=== PATIENT | male | born 1945 | race Caucasian/White ===

== ENCOUNTER 2017-08-11 14:37 | Emergency (ER) | payer MEDICARE, OTHER ==
--- NOTE | 2017-08-11 15:06 | EDM.PDOC ---
ED HPI GENERAL MEDICAL PROBLEM - General Chief Complaint: Cardiovascular Problem Stated Complaint: HIGH BP Time Seen by Provider: 08/11/17 15:01 Source of Information: Reports: Patient History Limitations: Reports: No Limitations - History of Present Illness INITIAL COMMENTS - FREE TEXT/NARRATIVE: c/o ingestion f.b. 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 and he is not planning on screening his stool - Related Data Allergies Allergy/AdvReac Type Severity Reaction Status Date / Time No Known Allergies Allergy Verified 12/04/14 07:53 Home Meds: Home Meds Finasteride 5 mg PO DAILY 10/07/13 [History] Lisinopril [Prinivil] 20 mg PO DAILY 10/07/13 [History] Meloxicam 15 mg PO DAILY 10/07/13 [History] Pioglitazone HCl/Metformin HCl [Actoplus Met 15 MG-850 MG] 1 tab PO BIDM [History] atorvaSTATin [Lipitor] 20 mg PO DAILY 10/07/13 [History] glipiZIDE [Glipizide] 10 mg PO DAILY 10/07/13 [History] metFORMIN [Glucophage] 850 mg PO JULIANNE 10/07/13 [History] Aspirin 325 mg PO DAILY 10/10/13 [History] Fluticasone Propionate 2 spray NS DAILY 12/01/14 [History] Social & Family History - Tobacco Use Smoking Status *Q: Never Smoker - Alcohol Use Days Per Week of Alcohol Use: 0 - Recreational Drug Use Recreational Drug Use: No ED ROS GENERAL - Review of Systems Review Of Systems: See Below Constitutional: Reports: No Symptoms HEENT: Reports: Other (dysphagia) Respiratory: Reports: No Symptoms Cardiovascular: Reports: No Symptoms Endocrine: Reports: No Symptoms GI/Abdominal: Reports: No Symptoms : Reports: No Symptoms Musculoskeletal: Reports: No Symptoms Skin: Reports: No Symptoms Neurological: Reports: No Symptoms Psychiatric: Reports: No Symptoms Hematologic/Lymphatic: Reports: No Symptoms Immunologic: Reports: No Symptoms ED EXAM, GENERAL - Physical Exam Exam: See Below Exam Limited By: No Limitations General Appearance: Alert, WD/WN, No Apparent Distress Nose: Normal Inspection, Normal Mucosa, No Blood Throat/Mouth: Normal Inspection, Normal Lips, Normal Teeth, Normal Gums, Normal Oropharynx, Normal Voice, No Airway Compromise, Other (no red, no swell) Head: Atraumatic, Normocephalic Neck: Normal Inspection, Supple, Non-Tender, Full Range of Motion, Other (neck NT) Respiratory/Chest: No Respiratory Distress, Lungs Clear, Normal Breath Sounds, No Accessory Muscle Use, Chest Non-Tender Cardiovascular: Normal Peripheral Pulses, Regular Rate, Rhythm, No Edema, No Gallop, No JVD, No Murmur, No Rub GI/Abdominal: Soft, Non-Tender, No Distention Psychiatric: Normal Affect, Normal Mood Skin Exam: Warm, Dry, Intact, Normal Color, No Rash Lymphatic: No Adenopathy Departure - Departure Time of Disposition: 15:04 Disposition: Home, Self-Care 01 Condition: Good Clinical Impression: Swallowed foreign body Instructions: Swallowed Foreign Body, Adult Referrals: Gatito Martins MD [Primary Care Provider] - Additional Instructions: May use liquid antacid 15 cc every 2-4 hours as needed for discomfort. May screen your stool for the next 2-3 days if desired to retrieve the partial. Continue regular diet. See your physician or return to ED if you should develop additional symptoms.
--- NOTE | 2017-08-11 16:42 | EDM.PDOC ---
ED HPI GENERAL MEDICAL PROBLEM - General Chief Complaint: Cardiovascular Problem Stated Complaint: HIGH BP Time Seen by Provider: 08/11/17 15:01 Source of Information: Reports: Patient History Limitations: Reports: No Limitations - History of Present Illness INITIAL COMMENTS - FREE TEXT/NARRATIVE: c/o inc'd BP BP 184/88, had seen PCP at [facility]gent [facility] in [place] on 07-20-17 and had cardiac echo done, his SBP was 144, has had gradual increase has been on lisinopril 20 mg daily for several yrs, dx with HTN 5y ago never had an MD, never dx with HF, told his EF was 69% on 07-20-17 no cp, no sob, has had ankle swelling told to take furosemide and KCl daily for 1 wk, then prn, which he did, did resume taking 2d ago, weight had gone from 344 to 335, now back up to 344 - Related Data Allergies Allergy/AdvReac Type Severity Reaction Status Date / Time No Known Allergies Allergy Verified 08/11/17 15:03 Home Meds: Home Meds Finasteride 5 mg PO DAILY 10/07/13 [History] Lisinopril [Prinivil] 20 mg PO DAILY 10/07/13 [History] Meloxicam 15 mg PO DAILY 10/07/13 [History] Pioglitazone HCl/Metformin HCl [Actoplus Met 15 MG-850 MG] 1 tab PO BIDM [History] atorvaSTATin [Lipitor] 20 mg PO DAILY 10/07/13 [History] metFORMIN [Glucophage] 850 mg PO DAILY 10/07/13 [History] Aspirin 325 mg PO DAILY 10/10/13 [History] Fluticasone Propionate 2 spray NS DAILY 12/01/14 [History] Furosemide 40 mg PO DAILY #30 tablet 08/11/17 [Rx] Furosemide [Furosemide] 20 mg PO ASDIRECTED 08/11/17 [History] Omeprazole [priLOSEC OTC] 20 mg PO DAILY 08/11/17 [History] Potassium Chloride 10 meq PO ASDIRECTED 08/11/17 [History] Potassium Chloride 40 meq PO DAILY #60 tablet.er 08/11/17 [Rx] Past Medical History Cardiovascular History: Reports: High Cholesterol, Hypertension Social & Family History - Tobacco Use Smoking Status *Q: Never Smoker - Caffeine Use Caffeine Use: Reports: Soda, Tea - Alcohol Use Days Per Week of Alcohol Use: 0 - Recreational Drug Use Recreational Drug Use: No ED ROS GENERAL - Review of Systems Review Of Systems: See Below Constitutional: Reports: No Symptoms HEENT: Reports: No Symptoms Respiratory: Reports: No Symptoms Cardiovascular: Reports: Other (inc'd ankle swelling) Endocrine: Reports: No Symptoms GI/Abdominal: Reports: No Symptoms : Reports: No Symptoms Musculoskeletal: Reports: No Symptoms Skin: Reports: No Symptoms Neurological: Reports: No Symptoms Psychiatric: Reports: No Symptoms Hematologic/Lymphatic: Reports: No Symptoms Immunologic: Reports: No Symptoms ED EXAM, GENERAL - Physical Exam Exam: See Below Free Text/Narrative:: c/o ingestion f.b. 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 and he is not planning on screening his stool Exam Limited By: No Limitations General Appearance: Alert, WD/WN, No Apparent Distress Nose: Normal Inspection, Normal Mucosa, No Blood Throat/Mouth: Normal Inspection, Normal Lips, Normal Teeth, Normal Gums, Normal Oropharynx, Normal Voice, No Airway Compromise, Other (no red, no swell) Head: Atraumatic, Normocephalic Neck: Normal Inspection, Supple, Non-Tender, Full Range of Motion, Other (neck NT) Respiratory/Chest: No Respiratory Distress, Lungs Clear, Normal Breath Sounds, No Accessory Muscle Use, Chest Non-Tender Cardiovascular: Regular Rate, Rhythm, No Gallop, No JVD, No Murmur, No Rub, Other (4+ pitting pretib edema b/l, trace edema above knees b/l) GI/Abdominal: Soft, Non-Tender, No Distention Back Exam: Normal Inspection, Full Range of Motion, NT Extremities: Other (edema as above) Neurological: Alert, Oriented, CN II-XII Intact, Normal Cognition, No Motor/ Sensory Deficits Psychiatric: Normal Affect, Normal Mood Skin Exam: Warm, Dry, Intact, Normal Color, No Rash Lymphatic: No Adenopathy Course - Vital Signs Last Recorded V/S: Last Vital Signs Temp 37.1 C 08/11/17 15:04 Pulse 74 08/11/17 15:04 Resp 20 08/11/17 15:04 BP 186/76 H 08/11/17 15:04 Pulse Ox 99 08/11/17 15:04 - Orders/Labs/Meds Orders: Active Orders 24 hr Category Date Time Status EKG 12 Lead [EK] Routine Ther 08/11/17 15:32 Ordered Labs: Laboratory Tests 08/11/17 08/11/17 Range/Units 15:50 15:50 Sodium 143 (135-145) mmol/L Potassium 3.9 (3.5-5.3) mmol/L Chloride 104 (100-110) mmol/L Carbon Dioxide 29 (21-32) mmol/L BUN 25 H (7-18) mg/dL Creatinine 1.1 (0.70-1.30) mg/dL Est Cr Clr Drug Dosing 58.92 mL/min Estimated GFR (MDRD) > 60 (>60) BUN/Creatinine Ratio 22.7 H (9-20) Glucose 115 (80-116) mg/dL Calcium 9.0 (8.6-10.2) mg/dL NT-Pro-B Natriuret Pep 216 H (<=125) pg/mL - Re-Assessments/Exams Free Text/Narrative Re-Assessment/Exam: 08/11/17 16:54 pt with clinical evidence of diastolic HF with inc'd BNP in context of preserved (if not somewhat elevated) EF, prerenal with inc'd BUN d/w HF, dry weight uncertain tx of HF discussed at length, including need to have additional adjustments in his meds Departure - Departure Time of Disposition: 16:43 Disposition: Home, Self-Care 01 Condition: Good Clinical Impression: Elevated blood pressure reading, Hypertension, Diastolic heart failure, Prerenal azotemia Prescriptions: Furosemide 40 mg PO DAILY #30 tablet Potassium Chloride 40 meq PO DAILY #60 tablet.er Instructions: Hypertension, [id number], Heart Failure, Preventing Heart Failure, Managing Your Hypertension Referrals: Gatito Martins MD [Primary Care Provider] - Forms: ED Department Discharge Additional Instructions: Continue the lisinopril 20 mg 1 tab daily. 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 Increase the potassium to 10 meq 2 tabs daily. Record your weight and blood pressure daily. See your physician in one week. Notify your physician if you have blood pressure higher than 200/100. Return to Emergency Department if you have blood pressure higher than 240/140. Call your Physician or Return to Emergency Department if: * Your condition worsens in any way. * You develop fever greater than 100.4. * You have vomiting that does not stop with medications. * You have pain that is not controlled with medications. - My Orders Last 24 Hours: My Active Orders 08/11/17 15:32 EKG 12 Lead [EK] Routine - Assessment/Plan Last 24 Hours: My Active Orders 08/11/17 15:32 EKG 12 Lead [EK] Routine
== END 2017-08-11 17:10 | disposition home or self-care (01) ==
LOC: FB.ED 14:37
DX: I11.0 Hypertensive heart disease with heart failure (principal); I50.30 Unspecified diastolic (congestive) heart failure; R79.89 Other specified abnormal findings of blood chemistry; E78.00 Pure hypercholesterolemia, unspecified; Z79.82 Long term (current) use of aspirin; Z79.899 Other long term (current) drug therapy
CPT/HCPCS: 36415; 80048; 83880; 93005; 99283

== ENCOUNTER 2019-05-01 00:37 | Emergency (ER) | payer MEDICARE, OTHER ==
[2019-05-01] MEDS ORDERED: Aspirin 81 MG Tab.Chew PO ONE (00:51)
--- NOTE | 2019-05-01 01:19 | EDM.PDOC ---
ED HPI GENERAL MEDICAL PROBLEM - General Chief Complaint: Chest Pain Stated Complaint: CHEST PAIN Time Seen by Provider: 05/01/19 00:40 Source of Information: Reports: Patient History Limitations: Reports: No Limitations - History of Present Illness INITIAL COMMENTS - FREE TEXT/NARRATIVE: Patient present to the Ed because of chest pain over the sternal area. the pain occurred while patient was resting,sharp,3/10 and worse with breathing. He denies and N/V dyspnea or diaphoresis. He is afraid that he might have a blood clot in his lung. He is taking coumadin because of a recent rt knee injury. L anterior chest Pain Score (Numeric/FACES): 2 - Related Data Allergies Allergy/AdvReac Type Severity Reaction Status Date / Time ciprofloxacin [From Cipro] Allergy Redness Verified 05/01/19 00:49 Home Meds: Home Meds Finasteride 5 mg PO DAILY 10/07/13 [History] Lisinopril [Prinivil] 20 mg PO DAILY 10/07/13 [History] Meloxicam 15 mg PO DAILY 10/07/13 [History] Pioglitazone HCl/Metformin HCl [Actoplus Met 15 MG-850 MG] 1 tab PO BIDM [History] atorvaSTATin [Lipitor] 20 mg PO DAILY 10/07/13 [History] metFORMIN [Glucophage] 850 mg PO DAILY 10/07/13 [History] Aspirin 325 mg PO DAILY 10/10/13 [History] Fluticasone Propionate 2 spray NS DAILY 12/01/14 [History] Furosemide 20 mg PO ASDIRECTED 08/11/17 [History] Furosemide 40 mg PO DAILY #30 tablet 08/11/17 [Rx] Omeprazole [priLOSEC OTC] 20 mg PO DAILY 08/11/17 [History] Potassium Chloride 10 meq PO ASDIRECTED 08/11/17 [History] Potassium Chloride 20 meq PO DAILY #30 tablet.er 08/11/17 [Rx] Potassium Chloride 40 meq PO DAILY #60 tablet.er 08/11/17 [Rx] Past Medical History HEENT History: Reports: Sinusitis Cardiovascular History: Reports: High Cholesterol, Hypertension Gastrointestinal History: Reports: Bowel Obstruction Genitourinary History: Reports: Prostate Disorder Musculoskeletal History: Reports: Arthritis Endocrine/Metabolic History: Reports: Diabetes, Type II, Obesity/BMI 30+ Hematologic History: Reports: Anticoagulation Therapy Oncologic (Cancer) History: Reports: Basal Cell Carcinoma Other Oncologic History: skin CA - Infectious Disease History Infectious Disease History: Reports: Chicken Pox, Measles, Mumps, Shingles - Past Surgical History HEENT Surgical History: Reports: Cataract Surgery Other HEENT Surgeries/Procedures: bilat cataract GI Surgical History: Reports: Cholecystectomy, Colonoscopy Musculoskeletal Surgical History: Reports: Knee Replacement Other Musculoskeletal Surgeries/Procedures:: L knee surgery, Social & Family History - Family History Family Medical History: Noncontributory - Tobacco Use Smoking Status *Q: Former Smoker Years of Tobacco use: 1 Used Tobacco, but Quit: Yes Month/Year Tobacco Last Used: 1967 - Caffeine Use Caffeine Use: Reports: Tea - Recreational Drug Use Recreational Drug Use: No ED ROS GENERAL - Review of Systems Review Of Systems: See Below Constitutional: Reports: No Symptoms HEENT: Reports: No Symptoms Respiratory: Reports: No Symptoms Cardiovascular: Reports: No Symptoms Endocrine: Reports: No Symptoms GI/Abdominal: Reports: No Symptoms : Reports: No Symptoms Musculoskeletal: Reports: No Symptoms Skin: Reports: No Symptoms Neurological: Reports: No Symptoms Psychiatric: Reports: No Symptoms Hematologic/Lymphatic: Reports: No Symptoms ED EXAM, GENERAL - Physical Exam Exam: See Below Exam Limited By: No Limitations General Appearance: Alert, WD/WN, No Apparent Distress Ears: Normal External Exam, Normal Canal, Hearing Grossly Normal Nose: Normal Inspection, Normal Mucosa, No Blood Throat/Mouth: Normal Inspection, Normal Lips, Normal Teeth, Normal Gums, Normal Oropharynx, Normal Voice, No Airway Compromise Head: Atraumatic, Normocephalic Neck: Normal Inspection, Supple, Non-Tender, Full Range of Motion Respiratory/Chest: No Respiratory Distress, Lungs Clear, Normal Breath Sounds, No Accessory Muscle Use, Chest Non-Tender Cardiovascular: Normal Peripheral Pulses, Regular Rate, Rhythm, No Edema, No Gallop, No JVD, No Murmur, No Rub GI/Abdominal: Normal Bowel Sounds, Soft, Non-Tender, No Organomegaly, No Distention, No Abnormal Bruit, No Mass Back Exam: Normal Inspection Course - Vital Signs Text/Narrative:: labs/EKG reviewed with patient and with full understanding EKG-NSR with PVC's trop neg Last Recorded V/S: Last Vital Signs Temp 36.4 C 05/01/19 00:37 Pulse 100 12/08/19 00:37 Resp 20 05/01/19 00:37 BP 162/79 H 05/01/19 00:37 Pulse Ox 99 05/01/19 00:37 - Orders/Labs/Meds Orders: Active Orders 24 hr Category Date Time Status EKG Documentation Completion [RC] ASDIRECTED Care 05/01/19 00:52 Active BASIC METABOLIC PANEL,BMP [CHEM] Stat Lab 05/01/19 00:50 Received TROPONIN I [CHEM] Stat Lab 05/01/19 00:50 Received EKG 12 Lead [EK] Routine Ther 05/01/19 00:52 Ordered Labs: Laboratory Tests 05/01/19 Range/Units 00:50 WBC 7.9 (4.5-12.0) X10-3/uL RBC 4.20 L (4.30-5.75) x10(6)uL Hgb 12.5 L (13.5-17.8) g/dL Hct 37.7 (30.0-51.3) % MCV 89.7 (80-96) fL MCH 29.7 (27.7-33.6) pg MCHC 33.1 (32.2-35.4) g/dL RDW 13.5 (11.5-15.5) % Plt Count 480 H (125-369) X10(3)uL MPV 7.5 (7.4-10.4) fL Neut % (Auto) 75.8 (46-82) % Lymph % (Auto) 11.8 L (13-37) % [place] % (Auto) 10.3 (4-12) % Eos % (Auto) 2 (1.0-5.0) % Baso % (Auto) 1 (0-2) % Neut # (Auto) 6.1 (1.6-8.3) # Lymph # (Auto) 0.9 (0.6-5.0) # [place] # (Auto) 0.8 (0.0-1.3) # Eos # (Auto) 0.1 (0.0-0.8) # Baso # (Auto) 0.0 (0.0-0.2) # Meds: Medications Discontinued Medications Generic Name Dose Route Start Last Admin Trade Name Freq PRN Reason Stop Dose Admin Aspirin 324 mg 05/01/19 00:51 Aspirin PO 05/01/19 00:52 ONETIME ONE Departure - Departure Time of Disposition: 01:40 Disposition: Home, Self-Care 01 Condition: Good Clinical Impression: Chest pain Instructions: Nonspecific Chest Pain Referrals: Gatito Martins MD [Primary Care Provider] - Additional Instructions: please read discharge instructions on non specific or atypical chest pain continue your pain medicine and coumadin follow up as needed - My Orders Last 24 Hours: My Active Orders 05/01/19 00:50 BASIC METABOLIC PANEL,BMP [CHEM] Stat TROPONIN I [CHEM] Stat 05/01/19 00:52 EKG Documentation Completion [RC] ASDIRECTED EKG 12 Lead [EK] Routine - Assessment/Plan Last 24 Hours: My Active Orders 05/01/19 00:50 BASIC METABOLIC PANEL,BMP [CHEM] Stat TROPONIN I [CHEM] Stat 05/01/19 00:52 EKG Documentation Completion [RC] ASDIRECTED EKG 12 Lead [EK] Routine
== END 2019-05-01 01:38 | disposition home or self-care (01) ==
LOC: FB.ED 00:37
DX: R07.2 Precordial pain (principal); E78.00 Pure hypercholesterolemia, unspecified; I10 Essential (primary) hypertension; E11.9 Type 2 diabetes mellitus without complications; E66.9 Obesity, unspecified; Z87.891 Personal history of nicotine dependence; Z68.42 Body mass index [BMI] 45.0-49.9, adult; Z88.1 Allergy status to other antibiotic agents; Z79.84 Long term (current) use of oral hypoglycemic drugs; Z79.82 Long term (current) use of aspirin; Z79.51 Long term (current) use of inhaled steroids; Z79.899 Other long term (current) drug therapy
CPT/HCPCS: 36415; 80048; 84484; 85025; 93005; 99285; A9270

== ENCOUNTER 2019-07-06 18:36 | Emergency (ER) | payer MEDICARE, OTHER ==
[2019-07-06] MEDS ORDERED: Sulfamethoxazole/Trimethoprim 800-160 MG Tab PO ONE (18:37)
--- NOTE | 2019-07-06 19:31 | EDM.PDOC ---
ED HPI GENERAL MEDICAL PROBLEM - General Chief Complaint: Back Pain or Injury Stated Complaint: LOWER BACK TESTICLE PAIN Time Seen by Provider: 07/06/19 19:28 Source of Information: Reports: Patient History Limitations: Reports: No Limitations - History of Present Illness INITIAL COMMENTS - FREE TEXT/NARRATIVE: 73 yo male with lower back pain,mild to moderate since this afternoon. Started with a feeling of being constipated,and he went at least 3 times,but tiny hard stools each time. He took some Miralax to help.Then this evening he endorses dysuria and hematuria,of sudden onset. No fever,chills or abdomen pain.Brad has a h/o CHF,HTN and DM2,and as well he recently had right Total Knee Arthoplasty. Lower back & testicles bilaterally Pain Score (Numeric/FACES): 5 - Related Data Allergies Allergy/AdvReac Type Severity Reaction Status Date / Time ciprofloxacin [From Cipro] Allergy Redness Verified 07/06/19 19:03 Home Meds: Home Meds Finasteride 5 mg PO DAILY 10/07/13 [History] Meloxicam 15 mg PO DAILY 10/07/13 [History] Pioglitazone HCl/Metformin HCl [Actoplus Met 15 MG-850 MG] 1 tab PO BIDM [History] atorvaSTATin [Lipitor] 20 mg PO DAILY 10/07/13 [History] lisinopriL [Prinivil] 20 mg PO DAILY 10/07/13 [History] metFORMIN [Glucophage] 850 mg PO DAILY 10/07/13 [History] Aspirin 325 mg PO DAILY 10/10/13 [History] Fluticasone Propionate 2 spray NS DAILY 12/01/14 [History] Furosemide 20 mg PO ASDIRECTED 08/11/17 [History] Furosemide 40 mg PO DAILY #30 tablet 08/11/17 [Rx] Omeprazole [priLOSEC OTC] 20 mg PO DAILY 08/11/17 [History] Potassium Chloride 10 meq PO ASDIRECTED 08/11/17 [History] Potassium Chloride 20 meq PO DAILY #30 tablet.er 08/11/17 [Rx] Potassium Chloride 40 meq PO DAILY #60 tablet.er 08/11/17 [Rx] Past Medical History HEENT History: Reports: Sinusitis Cardiovascular History: Reports: High Cholesterol, Hypertension Gastrointestinal History: Reports: Bowel Obstruction, GERD Genitourinary History: Reports: Prostate Disorder Musculoskeletal History: Reports: Arthritis, Gout Endocrine/Metabolic History: Reports: Diabetes, Type II, Obesity/BMI 30+ Hematologic History: Reports: Anticoagulation Therapy Oncologic (Cancer) History: Reports: Basal Cell Carcinoma Other Oncologic History: skin CA - Infectious Disease History Infectious Disease History: Reports: Chicken Pox, Measles, Mumps, Shingles - Past Surgical History HEENT Surgical History: Reports: Cataract Surgery Other HEENT Surgeries/Procedures: bilat cataract GI Surgical History: Reports: Cholecystectomy, Colonoscopy Musculoskeletal Surgical History: Reports: Knee Replacement Other Musculoskeletal Surgeries/Procedures:: L knee surgery, Social & Family History - Family History Family Medical History: Noncontributory - Tobacco Use Smoking Status *Q: Former Smoker Years of Tobacco use: 1 Used Tobacco, but Quit: Yes Month/Year Tobacco Last Used: 1969 - Caffeine Use Caffeine Use: Reports: Tea - Recreational Drug Use Recreational Drug Use: No ED ROS GENERAL - Review of Systems Review Of Systems: Comprehensive ROS is negative, except as noted in HPI. ED EXAM,LOWER BACK PAIN/INJURY - Physical Exam Exam: See Below Exam Limited By: No Limitations General Appearance: Alert, WD/WN, No Apparent Distress Respiratory/Chest: No Respiratory Distress, Lungs Clear Cardiovascular: Normal Peripheral Pulses GI/Abdominal: Normal Bowel Sounds, Soft, Non-Tender Back Exam: Normal Inspection Neurological: Alert, Normal Mood/Affect Psychiatric: Normal Affect Course - Vital Signs Last Recorded V/S: Last Vital Signs Temp 97.3 F 07/06/19 18:45 Pulse 48 L 07/06/19 18:45 Resp 24 H 07/06/19 18:45 BP 153/65 H 07/06/19 18:45 Pulse Ox 100 07/06/19 18:45 - Orders/Labs/Meds Orders: Active Orders 24 hr Category Date Time Status CULTURE URINE [RM] Stat Lab 07/06/19 19:15 Ordered Labs: Laboratory Tests 07/06/19 Range/Units 19:10 Urine Color Brown (YELLOW) Urine Appearance Cloudy (CLEAR) Urine pH 5.0 (5.0-6.5) Ur Specific [place] 1.025 (1.010-1.025) Urine Protein 100 H (NEGATIVE) mg/dL Urine Glucose (UA) Normal (NORMAL) mg/dL Urine Ketones 15 H (NEGATIVE) mg/dL Urine Occult Blood Large H (NEGATIVE) Urine Nitrite Positive H (NEGATIVE) Urine Bilirubin Negative (NEGATIVE) Urine Urobilinogen Normal (NEGATIVE) mg/dL Ur Leukocyte Esterase Small H (NEGATIVE) Departure - Departure Time of Disposition: 19:34 Disposition: Home, Self-Care 01 Condition: Good Clinical Impression: UTI (urinary tract infection) - Discharge Information Referrals: Gatito Martins MD [Primary Care Provider] - Forms: ED Department Discharge Sepsis Event Note - Evaluation Sepsis Screening Result: Possible Sepsis Risk - Focused Exam Vital Signs: Vital Signs Temp Pulse Resp BP Pulse Ox 07/06/19 18:45 97.3 F 48 L 24 H 153/65 H 100 Date Exam was Performed: 07/06/19 Time Exam was Performed: 19:34 - Problem List & Annotations (1) UTI (urinary tract infection) SNOMED Code(s): 02607155 Code(s): N39.0 - URINARY TRACT INFECTION, SITE NOT SPECIFIED Status: Acute Qualifiers: Urinary tract infection type: site unspecified Hematuria presence: with hematuria Qualified Code(s): N39.0 - Urinary tract infection, site not specified; R31.9 - Hematuria, unspecified (2) Back pain SNOMED Code(s): 296315372 Code(s): M54.9 - DORSALGIA, UNSPECIFIED Status: Acute Qualifiers: Back pain location: low back pain (3) Constipation SNOMED Code(s): 51168611 Code(s): K59.00 - CONSTIPATION, UNSPECIFIED Status: Acute Qualifiers: Constipation type: slow transit constipation Qualified Code(s): K59.01 - Slow transit constipation - Problem List Review Problem List Initiated/Reviewed/Updated: Yes - My Orders Last 24 Hours: My Active Orders 07/06/19 19:15 CULTURE URINE [RM] Stat - Assessment/Plan Last 24 Hours: My Active Orders 07/06/19 19:15 CULTURE URINE [RM] Stat Plan: UA was positive for a UTI. Start Bactrim DS bid x 3 days.Miralax prn. Return to ED with any worsening symptoms
[2019-07-06] MEDS ORDERED: Ketorolac 30 MG/ML SDV IM ONE (19:39)
== END 2019-07-06 19:50 | disposition home or self-care (01) ==
LOC: FB.ED 18:36
DX: N39.0 Urinary tract infection, site not specified (principal); I10 Essential (primary) hypertension; E78.00 Pure hypercholesterolemia, unspecified; E11.9 Type 2 diabetes mellitus without complications; E66.9 Obesity, unspecified; Z79.899 Other long term (current) drug therapy; Z87.891 Personal history of nicotine dependence; Z88.1 Allergy status to other antibiotic agents
CPT/HCPCS: 81003; 87086; 87088; 87186; 96372; 99284; A9270; J1885; 99283

== ENCOUNTER 2020-08-16 01:08 | Emergency (ER) | payer MEDICARE, OTHER ==
--- NOTE | 2020-08-16 01:31 | EDM.PDOC ---
ED HPI GENERAL MEDICAL PROBLEM - General Chief Complaint: Lower Extremity Injury/Pain Stated Complaint: KNEE Time Seen by Provider: 08/16/20 01:30 Source of Information: Reports: Patient History Limitations: Reports: No Limitations - History of Present Illness INITIAL COMMENTS - FREE TEXT/NARRATIVE: Left leg pain,since last evening.Had Knee surgery on 07/31 and was doing his exerc ises when this pain started. Radiated down the buttock,to the knee area.No swelling. No trauma.Gets better when he walks,worse with prolonged sitting.He called [facility],and they asked him to be seen for evaluation of possible DVT left leg Pain Score (Numeric/FACES): 3 - Related Data Allergies Allergy/AdvReac Type Severity Reaction Status Date / Time ciprofloxacin [From Cipro] Allergy Redness Verified 08/16/20 01:21 Home Meds: Home Meds Finasteride 5 mg PO DAILY 10/07/13 [History] Meloxicam 15 mg PO DAILY 10/07/13 [History] Pioglitazone HCl/Metformin HCl [Actoplus Met 15 MG-850 MG] 1 tab PO BIDM 10/07/13 [History] atorvaSTATin [Lipitor] 20 mg PO DAILY 10/07/13 [History] lisinopriL [Prinivil] 20 mg PO DAILY 10/07/13 [History] metFORMIN [Glucophage] 850 mg PO DAILY 10/07/13 [History] Aspirin 325 mg PO DAILY 10/10/13 [History] Fluticasone Propionate 2 spray NS DAILY 12/01/14 [History] Furosemide 20 mg PO ASDIRECTED 08/11/17 [History] Furosemide 40 mg PO DAILY #30 tablet 08/11/17 [Rx] Omeprazole [priLOSEC OTC] 20 mg PO DAILY 08/11/17 [History] Potassium Chloride 10 meq PO ASDIRECTED 08/11/17 [History] Potassium Chloride 20 meq PO DAILY #30 tablet.er 08/11/17 [Rx] Potassium Chloride 40 meq PO DAILY #60 tablet.er 08/11/17 [Rx] Past Medical History HEENT History: Reports: Sinusitis Cardiovascular History: Reports: High Cholesterol, Hypertension Gastrointestinal History: Reports: Bowel Obstruction, GERD Genitourinary History: Reports: Prostate Disorder Musculoskeletal History: Reports: Arthritis, Gout Endocrine/Metabolic History: Reports: Diabetes, Type II, Obesity/BMI 30+ Hematologic History: Reports: Anticoagulation Therapy Oncologic (Cancer) History: Reports: Basal Cell Carcinoma Other Oncologic History: skin CA - Infectious Disease History Infectious Disease History: Reports: Chicken Pox, Measles, Mumps, Shingles - Past Surgical History HEENT Surgical History: Reports: Cataract Surgery Other HEENT Surgeries/Procedures: bilat cataract GI Surgical History: Reports: Cholecystectomy, Colonoscopy Musculoskeletal Surgical History: Reports: Knee Replacement Other Musculoskeletal Surgeries/Procedures:: L knee surgery, Social & Family History - Family History Family Medical History: No Pertinent Family History - Caffeine Use Caffeine Use: Reports: Tea Review of Systems - Review of Systems Review Of Systems: See Below ED EXAM, GENERAL - Physical Exam Exam: See Below Exam Limited By: No Limitations General Appearance: Alert, WD/WN, No Apparent Distress Nose: Normal Inspection Throat/Mouth: Normal Inspection Head: Atraumatic Respiratory/Chest: No Respiratory Distress, Lungs Clear Cardiovascular: Normal Peripheral Pulses, Regular Rate, Rhythm Back Exam: Normal Inspection Extremities: Normal Inspection, Leg Pain. No: Pedal Edema, Saima's Sign Neurological: Alert, Oriented Course - Vital Signs Last Recorded V/S: Last Vital Signs Temp 97.7 F 08/16/20 01:15 Pulse 88 08/16/20 01:15 Resp 17 08/16/20 01:15 BP 144/68 H 08/16/20 01:15 Pulse Ox 100 08/16/20 01:15 Departure - Departure Time of Disposition: 01:31 Disposition: Home, Self-Care 01 Condition: Good Clinical Impression: Back pain Qualifiers: Back pain location: low back pain - Discharge Information Instructions: Musculoskeletal Pain Referrals: Gatito Martins MD [Primary Care Provider] - Forms: ED Department Discharge Additional Instructions: May take Tylenol for pain every 8 hours. Follow up with your Surgeon or Primary Care Provider as scheduled. Call if you have any questions or come back to the ED if symptoms get worse in any way. Sepsis Event Note (ED) - Evaluation Sepsis Screening Result: No Definite Risk - Focused Exam Vital Signs: Vital Signs Temp Pulse Resp BP Pulse Ox 08/16/20 01:15 97.7 F 88 17 144/68 H 100 - Problem List & Annotations (1) Sciatica SNOMED Code(s): 46919426 Code(s): M54.30 - SCIATICA, UNSPECIFIED SIDE Status: Acute Qualifiers: Laterality: left Qualified Code(s): M54.32 - Sciatica, left side (2) H/O: knee surgery SNOMED Code(s): 644566494, 847597782 Code(s): Z98.890 - OTHER SPECIFIED POSTPROCEDURAL STATES Status: Acute - Problem List Review Problem List Initiated/Reviewed/Updated: Yes - Assessment/Plan Plan: His pain responded to Tylenol. its about 3/10 now. I see no signs or evidence of DVT,and this was seriously considered.I DC's him home.
== END 2020-08-16 01:50 | disposition home or self-care (01) ==
LOC: FB.ED 01:08
DX: M54.5 Low back pain (principal); M79.605 Pain in left leg; E78.00 Pure hypercholesterolemia, unspecified; I10 Essential (primary) hypertension; K21.9 Gastro-esophageal reflux disease without esophagitis; M10.9 Gout, unspecified; E11.9 Type 2 diabetes mellitus without complications; E66.9 Obesity, unspecified; Z88.1 Allergy status to other antibiotic agents; Z79.01 Long term (current) use of anticoagulants; Z79.82 Long term (current) use of aspirin; Z79.84 Long term (current) use of oral hypoglycemic drugs; Z79.899 Other long term (current) drug therapy
CPT/HCPCS: 99282; 99283

== ENCOUNTER 2024-03-31 22:39 | Emergency (ER) | payer MEDICARE, OTHER ==
[2024-03-31] MEDS: Sodium Chloride 0.9% 1,000 ML IV ONE (23:10)
[2024-03-31] MEDS: Ondansetron 4 MG/2 ML SDV IVPUSH ONE (23:10)
[2024-03-31 23:19] LABS: HEMATOCRIT 32.6 % (38.3-50.1); HEMOGLOBIN 10.9 g/dL (12.9-17.7); MEAN CORPUSCULAR HEMOGLOBIN 30.3 pg (27.0-33.3); MEAN CORPUSCULAR HGB CONC 33.5 g/dL (28.7-35.3); MEAN CORPUSCULAR VOLUME 90.6 fL (80.8-98.7); PLATELET COUNT,PLT 260 x10(3)uL (117-477); RED CELL DISTRIBUTION WIDTH 15.1 % (12.4-15.0)
[2024-03-31 23:26] LABS: BLOOD UREA NITROGEN,BUN 44 mg/dL (7-18); BUN/CREATININE RATIO 25.9 (9-20); CALCIUM 9.2 mg/dL (8.6-10.2); CARBON DIOXIDE,CO2 26 mmol/L (21-32); CHLORIDE,CL 103 mmol/L (100-110); CREATININE 1.7 mg/dL (0.70-1.30); EST CRCL DRUG DOSING (CG) 34.66 mL/min; ESTIMATED GFR 40 mL/min (>60); GLUCOSE RANDOM 230 mg/dL (80-116); POTASSIUM,K 4.4 mmol/L (3.5-5.3); SODIUM,NA 140 mmol/L (135-145)
[2024-03-31 23:28] LABS: BAND PERCENT MAN 3 % (0-6); LYMPHOCYTES PERCENT MAN 8 % (13-37); MONOCYTES PERCENT MAN 5 % (4-12); SEG NEUTROPHILS PERCENT MAN 83 % (46-82)
[2024-03-31 23:29] LABS: EOSINOPHILS PERCENT MAN 1 % (0-5)
[2024-03-31] MEDS: HYDROmorphone 2 MG/ML SDV IVPUSH ONE (23:30)
[2024-03-31 23:32] LABS: A/G RATIO 0.9; ALANINE AMINOTRANSFERASE,ALT 25 U/L (12-36); ALBUMIN 3.5 g/dL (3.2-4.6); ALKALINE PHOSPHATASE 113 IU/L (56-112); ASPARTATE AMNIOTRANSFERASE,AST 23 IU/L (5-25); BILIRUBIN TOTAL 0.4 mg/dL (0.1-1.3); PROTEIN TOTAL,TP 7.4 g/dL (6.0-8.0)
[2024-03-31 23:40] LABS: C-REACTIVE PROTEIN < 0.50 mg/dL (<0.50); LIPASE 200 U/L (16-77)
[2024-04-01] MEDS: Iopamidol 755 Mg/ML 200 ML Bottle IV ONE (00:02)
== END 2024-04-01 01:40 ==
LOC: FB.ED 22:39
DX: K56.609 Unspecified intestinal obstruction, unspecified as to partial versus complete obstruction (principal); R74.8 Abnormal levels of other serum enzymes; N18.9 Chronic kidney disease, unspecified; E78.00 Pure hypercholesterolemia, unspecified; I10 Essential (primary) hypertension; K21.9 Gastro-esophageal reflux disease without esophagitis; Z90.49 Acquired absence of other specified parts of digestive tract; Z79.84 Long term (current) use of oral hypoglycemic drugs; Z79.82 Long term (current) use of aspirin; Z79.899 Other long term (current) drug therapy; Z88.1 Allergy status to other antibiotic agents
CPT/HCPCS: 36415; 43752; 71045; 74177; 80053; 83605; 83690; 85025; 86140; 96361; 96374; 96375; 99284; 99285; J1171; J2405; J7030; Q9967